=== PATIENT | male | born 1955 | race Caucasian/White ===

== ENCOUNTER 2017-04-30 11:20 | Emergency (ER) | payer OTHER ==
[2017-04-30 11:43] VITALS: TEMP 98.4
--- NOTE | 2017-04-30 12:09 | ED.PDOC ---
History of Present Illness - General Chief Complaint: Abdominal Pain Stated Complaint: Abdominal discomfort Time Seen by Provider: 04/30/17 11:51 Source: patient Exam Limitations: no limitations - History of Present Illness Initial Comments: Patient presents with LUQ pain for 2-3 days. The pain is gaseous and bloating with no radiation. Is constant. He said he had a previous episode that was diagnosed as a hiatal hernia and treated with surgery two years ago. He says this pain isn't as bad. He has GERD and stopped taking omeprazole 3 days ago because he has a colonoscopy in 2 days and didn't know if he could take it. He has had a decreased appetite for the last several months. He has chronic hemorrhoids and the reason for the colonoscopy is because he had a small amount of blood in his stool this past fall. No particular timing. His last meal was this morning. No nausea/vomiting. Has occasional diarrhea. No other associated symptoms. Stopped smoking 36 years ago. He says he tends to "overdo it" sometimes on drinking alcohol. Last drink was 3 days ago. No nervousness/ seizures/palpitations/diaphoresis. Denies daily drinking. No other complaints. Timing/Duration: other - 3 days Severity: moderate Improving Factors: nothing Worsening Factors: nothing Associated Symptoms: other - see HPI Allergies/Adverse Reactions: Allergies NO KNOWN ALLERGY Allergy (Verified 04/30/17 11:46) Home Medications: Ambulatory Orders Levothyroxine Sodium [Synthroid] 0.025 mg PO DAILY 04/30/17 Omeprazole 20 mg PO DAILY 04/30/17 Review of Systems - Review of Systems Constitutional: States: no symptoms reported EENTM: States: no symptoms reported Respiratory: States: no symptoms reported Cardiology: States: no symptoms reported Gastrointestinal/Abdominal: States: see HPI Genitourinary: States: no symptoms reported Musculoskeletal: States: no symptoms reported Skin: States: no symptoms reported Neurological: States: no symptoms reported Endocrine: States: no symptoms reported Hematologic/Lymphatic: States: no symptoms reported Past Medical History (General) - Patient Medical History Hx Stroke: No Hx Cardiac Disorders: Yes - hypercholesterolemia Hx Congestive Heart Failure: No Hx Thyroid Disease: Yes Hx Diabetes: No Hx Gastroesophageal Reflux: Yes Surgical History: tonsillectomy, other - Vaccination History Hx Tetanus, Diphtheria Vaccination: Yes - 2017 Hx Influenza Vaccination: No Hx Pneumococcal Vaccination: No - Social History Hx Tobacco Use: No Family Medical History - Family History Father Family History: No Known Living Status: Physical Exam - Physical Exam General Appearance: Alert Eye Exam: bilateral normal Ears, Nose, Throat: normal ENT inspection Neck: non-tender, full range of motion, supple Respiratory: chest non-tender, lungs clear, normal breath sounds Cardiovascular/Chest: normal peripheral pulses, regular rate, rhythm, no edema Gastrointestinal/Abdominal: normal bowel sounds, non tender, soft Back Exam: no CVA tenderness Extremity: normal range of motion, non-tender Neurologic: no motor/sensory deficits Skin Exam: normal color Lymphatic: no adenopathy Progress - Progress Progress: 04/30/17 13:29 Labs were unremarkable. CXR showed almost complete gastric hiatal hernia. Lactic acid drawn. Blood cultures x two drawn. Zosyn 3.375 grams IV x one started. Patient transferred to [facility]. Laboratory Tests 04/30/17 04/30/17 12:06 12:06 WBC 6.3 RBC 5.60 Hgb 16.1 Hct 47.7 MCV 85.1 MCH 28.8 MCHC 33.8 RDW 13.7 Plt Count 225 MPV 9.2 Absolute Neuts (auto) 3.30 Absolute Lymphs (auto) 2.00 Absolute Monos (auto) 0.70 Absolute Eos (auto) 0.20 Absolute Basos (auto) 0.10 Neutrophils % 52.9 Lymphocytes % 31.6 Monocytes % 11.9 H Eosinophils % 2.6 Basophils % 1.0 Sodium 136 Potassium 4.1 Chloride 103 Carbon Dioxide 25 Anion Gap 12.1 BUN 14 Creatinine 0.66 BUN/Creatinine Ratio 21.2 H Random Glucose 97 Serum Osmolality 272.3 L Calcium 10.0 Total Bilirubin 0.6 AST 40 ALT 47 Alkaline Phosphatase 66 Creatine Kinase 87 CK-MB (CK-2) 1.8 CK-MB (CK-2) % Not Reportable Troponin I < 0.02 Serum Total Protein 8.5 H Albumin 4.5 Globulin 4.0 H Albumin/Globulin Ratio 1.1 Lipase 33 Departure - Departure Clinical Impression: Hiatal hernia Disposition: Transfer to Hospital Condition: Fair Departure Forms: ED Discharge - Pt. Copy, Patient Portal Self Enrollment Instructions: DI for Abdominal Pain-Adult Diet: other - NPO Activity: other - as per surgery Home Medications: Ambulatory Orders Levothyroxine Sodium [Synthroid] 0.025 mg PO DAILY 04/30/17 Omeprazole 20 mg PO DAILY 04/30/17
[2017-04-30] MEDS ORDERED: ALUM & MAG HYDROX-SIMETHICONE 30 ML, LIDOCAINE VISCOUS 2% 15 ML PO ONE ×2 (12:41)
[2017-04-30] MEDS ORDERED: LIDOCAINE HCL 2% (MOUTH-THROAT) 15 ML UD ONE (12:42)
[2017-04-30] MEDS ORDERED: ALUM & MAG HYDROX-SIMETHICONE 30 ML UD ONE (12:42)
--- NOTE | 2017-04-30 13:01 | RAD ---
EXAM: AP CHEST RADIOGRAPH CLINICAL INDICATION: Left upper quadrant pain. History of hiatal hernia. COMPARISON: None. FINDINGS: Partially visualized large gastric hiatal hernia with most the stomach herniated into the thoracic cavity. Left basilar atelectasis. Lungs are otherwise clear. No pneumothorax or free peritoneal gas. IMPRESSION: Large gastric hiatal hernia. Electronically signed by: Rick Hall MD 04/30/2017 1:00 PM [facility]
[2017-04-30] MEDS ORDERED: PIPERACILLIN/TAZOBACTAM 3.375 GM in SODIUM CHLORIDE 0.9% 100ML 100 ML IVPB ONE (13:28)
[2017-04-30] MEDS ORDERED: SODIUM CHLORIDE 0.9% 1000ML 1,000 ML IVS PRN (13:28)
[2017-04-30] MEDS ORDERED: PIPERACILLIN/TAZOBACTAM 3.375 GM VIAL IVPB ONE (13:45)
[2017-04-30] MEDS ORDERED: SODIUM CHLORIDE 0.9% 100ML 100 ML IVPB ONE (13:46)
[2017-04-30 15:26] VITALS: BP 138/94
[2017-04-30 15:35] VITALS: O2SAT 94
== END 2017-04-30 15:28 | disposition short-term general hospital (02) ==
LOC: ER 11:20
DX: K46.9 Unspecified abdominal hernia without obstruction or gangrene (principal); E78.00 Pure hypercholesterolemia, unspecified; E07.9 Disorder of thyroid, unspecified; Z87.891 Personal history of nicotine dependence
CPT/HCPCS: 36415; 71045; 80053; 82550; 82553; 83605; 83690; 84484; 85025; 87040; 93005; J2543; J7030; J7050